=== PATIENT | male | born 1955 | race Caucasian/White ===

== ENCOUNTER 2022-09-05 19:51 | Emergency (ER) | payer OTHER ==
[~2022-09-05] VITALS: Ht 167.6 cm; Wt 109.0 kg
[2022-09-05 20:21] VITALS: BP 137/63
[2022-09-05 22:16] LABS: BASOPHILS % 0.6 % (0.0-2.0); EOSINOPHILS % 2.2 % (0.0-5.0); HEMATOCRIT. 39.4 % (42.0-52.0); HEMOGLOBIN. 13.3 g/dL (14.0-18.0); LYMPHOCYTES % 33.7 % (20.0-50.0); MEAN CORPUSCULAR HEMOGLOBIN 30.2 pg (28.0-32.0); MEAN PLATELET VOLUME 8.7 fl (7.4-10.4); MONOCYTES % 8.2 % (2.0-8.0); NEUTROPHILS % 55.3 % (40.0-76.0); PLATELET 262 x1000/uL (130-400); RED BLOOD CELL COUNT 4.38 mill/uL (4.7-6.1); RED CELL DISTRIBUTION WIDTH 13.8 % (11.6-14.6)
[2022-09-05 22:25] LABS: CHLORIDE 108 mEq/L (98-107)
[2022-09-06] MEDS ORDERED: DIPHENHYDRAMINE 50MG CAPSULE PO ONE (02:30)
[2022-09-06] MEDS ORDERED: FAMOTIDINE 20MG TABLET PO SCH (02:30)
[2022-09-06] MEDS ORDERED: DIPHENHYDRAMINE 25MG CAPSULE PO NR (02:45)
== END 2022-09-06 02:07 | disposition home or self-care (01) ==
LOC: ER 19:51
DX: M79.89 Other specified soft tissue disorders (principal); I10 Essential (primary) hypertension; Z98.890 Other specified postprocedural states; Z86.39 Personal history of other endocrine, nutritional and metabolic disease
CPT/HCPCS: 36415; 80053; 85025; 93971; 99284; Q0163

== ENCOUNTER 2023-03-01 09:04 | Emergency (ER) | payer OTHER ==
[~2023-03-01] VITALS: Ht 172.7 cm; Wt 100.0 kg
[2023-03-01 09:11] VITALS: O2SAT 96
[2023-03-01 10:13] LABS: BASOPHILS % 0.3 % (0.0-2.0); EOSINOPHILS % 1.1 % (0.0-5.0); HEMATOCRIT. 41.2 % (42.0-52.0); HEMOGLOBIN. 14.3 g/dL (14.0-18.0); LYMPHOCYTES % 24.1 % (20.0-50.0); MEAN CORPUSCULAR HEMOGLOBIN 30.4 pg (28.0-32.0); MEAN CORPUSCULAR HGB CONC 34.7 g/dL (31.0-37.0); MEAN CORPUSCULAR VOLUME 87.8 fL (80.0-94.0); MEAN PLATELET VOLUME 8.4 fl (7.4-10.4); MONOCYTES % 11.3 % (2.0-8.0); NEUTROPHILS % 63.2 % (40.0-76.0); PLATELET 211 x1000/uL (130-400); RED CELL DISTRIBUTION WIDTH 13.1 % (11.6-14.6)
[2023-03-01 10:37] LABS: CHLORIDE 100 mEq/L (98-107); INDEX HEMOLYSI 1 (1-3); INDEX ICTERIC 1 (1-4); INDEX LIPEMIC 1 (1-3); POTASSIUM 3.7 mEq/L (3.5-5.1); SODIUM 134 mEq/L (136-145)
[2023-03-01 10:45] LABS: ALANINE AMINOTRANSFERASE 57 IU/L (13-61); ALBUMIN 3.6 g/dL (3.4-5.0); ASPARTATE AMINOTRANSFERASE 52 IU/L (15-37); BILIRUBIN TOTAL 1.1 mg/dL (0.1-1.0); CALCIUM 8.3 mg/dL (8.5-10.1); CARBON DIOXIDE 27 mEq/L (21-32); GLUCOSE 99 mg/dL (70-105); PROTEIN TOTAL 7.7 g/dL (6.0-8.3); UREA NITROGEN BLOOD 20 mg/dL (7-21)
[2023-03-01] MEDS ORDERED: KETOROLAC 60MG/2ML VIAL IM STA (17:53)
[2023-03-01] MEDS ORDERED: ACETAMINOPHEN WITH CODEINE 300/30MG TABLET PO STA (17:53)
[2023-03-01] MEDS ORDERED: ONDANSETRON 4MG ODT PO STA (17:53)
[2023-03-01 18:25] LABS: CLARITY URINE CLEAR (CLEAR); COLOR URINE DARK YELLOW (YELLOW); GLUCOSE URINE NEGATIVE (NEGATIVE); KETONES URINE 3+ (NEGATIVE); LEUKOCYTE ESTERASE URINE NEGATIVE (NEGATIVE); NITRITE URINE NEGATIVE (NEGATIVE); OCCULT BLOOD URINE NEGATIVE (NEGATIVE); PH URINE 5.5 (4.5-8.0); PROTEIN URINE TRACE (NEGATIVE); SPECIFIC GRAVITY URINE 1.025 (1.005-1.030)
[2023-03-01 18:31] VITALS: TEMP 98.2
[2023-03-01 18:46] LABS: BACTERIA URINE NONE SEEN; RBC URINE NONE SEEN /hpf (0-2); SQUAMOUS EPITHELIAL CELL URINE RARE /lpf (RARE/1+); WBC URINE 0-2 /hpf (0-2)
[2023-03-01 22:05] VITALS: BP 142/74; PULSE 76; RESP 20
== END 2023-03-01 22:06 | disposition home or self-care (01) ==
LOC: ER 09:14
DX: R10.84 Generalized abdominal pain (principal); I10 Essential (primary) hypertension; E05.90 Thyrotoxicosis, unspecified without thyrotoxic crisis or storm
CPT/HCPCS: 99285; 74176; 80053; 81003; 83690; 85025; 36415; 96372; Q0162; J1885